=== PATIENT | female | born 1940 | race Caucasian/White ===

== ENCOUNTER 2019-12-30 11:51 | Inpatient (IN) | payer MEDICARE, OTHER, SELFPAY ==
[2019-12-30] VITALS (9 sets, daily range): BP systolic 118–153; BP diastolic 52–93; PULSE 55–80; RESP 15–18; TEMP 36.4–36.8; O2SAT 95–100; BMI 26.2; BMI 25.1; BMI 25.2
--- NOTE | 2019-12-30 12:24 | RAD_ITS ---
STUDY: X-RAY CHEST REASON FOR EXAM: Female, 79 years old. CHEST TIGHTNESS TECHNIQUE: Single AP portable view of the chest. COMPARISON: None. FINDINGS: EKG leads project over the chest. The lungs are clear and expanded. There is no demonstrated pleural abnormality. Normal size heart. Normal mediastinum and laura. Normal visualized pulmonary arteries. There is atherosclerotic tortuosity of the aortic arch and descending thoracic aorta. Normal visualized thoracic spine. Normal visualized ribs, clavicles, and shoulders. There is no demonstrated abnormality of the visualized soft tissue structures of the upper abdomen. RAD/Chest 1 View (Portable) IMPRESSION: Nonacute portable x-ray examination of the chest. Electronically Signed: Joselito Salinas MD (Brooks) at 14:05 EST , Service support ,
--- NOTE | 2019-12-30 12:24 | EKG12_ITS ---
Test Reason : Blood Pressure : / mmHG Vent. Rate : 058 BPM Atrial Rate : 058 BPM P-R Int : 136 ms QRS Dur : 082 ms QT Int : 418 ms P-R-T Axes : 050 033 049 degrees QTc Int : 410 ms Sinus bradycardia with sinus arrhythmia Otherwise normal ECG No previous ECGs available Confirmed by LIA CRAMER, WHITNEY ([id number]), editor & co founder ALLEN WEN ([id number]) on 01/01/2020 9:34:29 AM Referred By: XAVI Confirmed By:WHITNEY FITZGERALD MD
--- NOTE | 2019-12-30 12:24 | ED.VIS.GEN ---
History of Present Illness Chief Complaint: Chest Pain Informant: Patient Onset: Today Current Severity: Moderate Maximum Severity: Moderate Narrative: Present secondary to chest pain. She states that she went to brush her teeth this morning and got chest pressure that radiated toward both shoulders and into her right jaw. She states she had similar pain in March when she was seen at [facility] and transferred to [facility] in [place]. She had a heart cath at that time that showed mild blockages in her small vessels and an arrhythmia. This is per her report, I do not records to verify this. Patient states since that time she is had occasional pain that would resolve with nitro. She took 2 nitro today without significant improvement. She did take 1 baby aspirin this morning. - Past Medical History (1) Hypertension Status: Chronic (2) High cholesterol Status: Chronic (3) Diabetes Status: Chronic (4) Hypothyroid Status: Chronic Past Medical History - Allergies and Home Meds Allergies/Adverse Reactions: Allergies Penicillins [PCN] Allergy (Verified 12/30/19 12:02) Rash Primary Care Physician: [facility] Doctor,Out of [NON-STAFF] - Prior records reviewed: Yes Smoking Status: Unknown if ever smoked Review of Systems General: Denies: Chills, Fever Eyes: Denies: Visual changes - bilaterally ENT: Denies: Bilateral ear pain Cardiovascular: Reports: Chest pain Respiratory: Denies: Dyspnea, Cough Gastrointestinal: Denies: Abdominal pain Musculoskeletal: Denies: Extremity Pain Skin: Denies: Rash Neurological: Denies: Headache Hematologic: Denies: Easy bruising, Easy bleeding Allergy: Denies: Uticaria Physical Exam Vital Signs/Narrative: Vital Signs Temp Pulse Resp BP Pulse Ox 12/30/19 11:51 98.2 F 80 18 153/93 H 96 Inital Vital Signs reviewed: Yes General: Well nourished, Well developed Head: Normocephalic ENT: Moist mucous membranes Neck: Supple Cardiovascular: Regular rate, Regular rhythm Respiratory: No distress, CTA bilaterally, Chest nontender Abdomen: Soft, Nontender Extremities: Nontender Skin: Normal color Neurological: Alert, Oriented x3 Psychological: Normal affect Diagnostic/Tx/Re-eval Chest X-Ray - ED: 1 View, Read by ED Physician, Normal, Heart, Lungs, Mediastinum 12/30/19 12:24 Chest 1 View (Portable) [RAD] Stat Laboratory Results 12/30/19 12/30/19 12:30 12:30 WBC 8.7 RBC 4.24 Hgb 12.5 Hct 40.0 MCV 94.3 MCH 29.5 MCHC 31.3 L RDW Std Deviation 46.0 H RDW Coeff of Jerry 13.5 Plt Count 137 L MPV 13.9 H Immature Gran % (Auto) 0.300 Neut % (Auto) 70.8 H Lymph % (Auto) 20.6 [place] % (Auto) 4.7 Eos % (Auto) 2.8 Baso % (Auto) 0.8 Absolute Neuts (auto) 6.2 Absolute Lymphs (auto) 1.79 Nucleated RBC % 0 Sodium 143 Potassium 4.3 Chloride 111 H Carbon Dioxide 25.0 Anion Gap 7 BUN 21 H Creatinine 1.44 H Estim Creat Clear Calc 26.63 Est GFR (MDRD) Af Amer 45 L Est GFR (MDRD) Non-Af 37 L BUN/Creatinine Ratio 14.6 Glucose 252 H Calcium 8.8 Troponin I < 0.015 - EKG Initial EKG Interpretation: Sinus Rhythm - Sinus at 72 with no acute ischemia. - Medical Decision Making Patient was given 3 additional baby aspirin as she initially had taken 1 at home. She had no improvement with nitro today. I was able to review her notes from March when she was at [facility], but not from [facility]. At [place] her troponin increased from 0.02-0.5. At that time she was diagnosed with an NSTEMI and she was placed on a heparin drip and transferred for further evaluation. Because the patient does have risk factors and her symptoms today are very much like March when she had an NSTEMI I will recommend hospitalization for cycling of cardiac enzymes and further evaluation. Hospitalist is on page. ED Disposition - Plan for ED Patient: Disposition: Home or Assisted Living Diagnosis: Chest pain Referrals: [facility] Doctor,Out of [NON-STAFF] -
[2019-12-30] MEDS: Aspirin 81 MG TAB.CHEW 243 MG PO (12:34)
[2019-12-30 12:43] LABS: Absolute Lymphocyte Count 1.79 X10^3/uL (0.83-4.51); Absolute Neutrophil Count 6.2 X10^3/uL (2.0-7.7); Basophil# 0.07 X10^3/uL; Basophil% 0.8 % (0-1); Eosinophil# 0.24 X10^3/uL; Eosinophils% 2.8 % (0-5); Hemoglobin 12.5 g/dL (12.0-15.0); Lymphocyte # 1.79 X10^3/ul (4.0); Lymphocyte % 20.6 % (19-41); Mean Corp Hgb Conc 31.3 g/dL (32-36); Mean Corpuscular Hgb 29.5 pg (27.0-32.0); Mean Corpuscular Volume 94.3 fL (81-99); Mean Platelet Vol. 13.9 fl (6.2-12.0); Monocyte# 0.41 X10^3/uL; Monocyte% 4.7 % (0-10); NRBC Flagged by Analyzer 0 % (0-5); Neutrophil # 6.17 X10^3/uL (2.7-7.7); Neutrophil % 70.8 % (47-70); Platelet Count 137 K/mm3 (150-450); RBC Distribution Width CV 13.5 % (11.6-14.6); Red Blood Count 4.24 M/mm3 (4.2-5.4); White Blood Count 8.7 K/mm3 (4.4-11.0)
[2019-12-30 12:58] LABS: Anion Gap 7 (5-15); BUN 21 mg/dL (7-18); BUN/Creat Ratio 14.6 RATIO (10-20); Calcium,Total 8.8 mg/dL (8.5-10.1); Chloride 111 mmol/L (98-107); Creatinine, Serum 1.44 mg/dL (0.55-1.02); EST Glomerular Filtration Rate 37 mL/min (>60); Est Glom Filt Rate - Afr Amer 45 mL/min (>60); Estimated Creatinine Clearance 26.63 ml/min; Glucose 252 mg/dL (74-106); Potassium 4.3 mmol/L (3.5-5.1); Sodium Level 143 mmol/L (136-145)
--- NOTE | 2019-12-30 14:19 | ED.RN ---
Message left for Jonathan with PCU room number and nurse's station number.
--- NOTE | 2019-12-30 15:24 | EKG12_ITS ---
Test Reason : CP Blood Pressure : / mmHG Vent. Rate : 072 BPM Atrial Rate : 072 BPM P-R Int : 158 ms QRS Dur : 076 ms QT Int : 374 ms P-R-T Axes : 053 026 054 degrees QTc Int : 409 ms Normal sinus rhythm with sinus arrhythmia Normal ECG Confirmed by LIA CRAMER, WHITNEY ([id number]), tape editor MILADY TRINH ([id number]) on 01/02/2020 10:33:25 AM Referred By: DAGO/MIGUEL Confirmed By:WHITNEY FITZGERALD MD
--- NOTE | 2019-12-30 15:40 | HP.PCM_ITS ---
Problem List (1) Hypertension Status: Chronic (2) High cholesterol Status: Chronic (3) Diabetes Status: Chronic (4) Hypothyroid Status: Chronic (5) Chest pain Status: Acute History of Present Illness Date of Admission: 12/30/19 Chief Complaint: Chest pain. The patient is a 79 year old F who presents emergency room due to chest pain. Patient reports around 10 AM this morning she developed a sharp pain in the center of her chest which radiated down both arms and up her neck. She denies shortness of breath, nausea, diaphoresis, lightheadedness or other associated symptoms. Patient took a nitro at home however it did not improve her symptoms. She reports her pain continued and is just now starting to ease up. Patient states she had a mild heart attack in March of this year she was seen at [facility]. She reports she underwent heart cath at that time which showed nonobstructive coronary arteries. Upon exam, her chest pain is reproducible with palpation in her midsternal area. Initial troponin negative. She has a past medical history of chronic kidney disease stage III, type 2 diabetes mellitus, hypertension, hyperlipidemia. Past Medical History Past Medical History (Chronic Problems): Chronic Problems (Last Reviewed 12/30/19 @ 15:01 by Irene Quiroz RN) Hypertension (Chronic) High cholesterol (Chronic) Diabetes (Chronic) Hypothyroid (Chronic) Medical History: Medical History (Last Reviewed 12/30/19 @ 15:01 by Irene Quiroz RN) HTN (hypertension) I10 Allergies Penicillins [PCN] Allergy (Verified 12/30/19 12:02) Rash Home Medications: Ambulatory Orders Medication Instructions Recorded Aspirin [Aspirin, Baby] 81 mg PO DAILY@0800 12/30/19 Atorvastatin Calcium [Lipitor] 80 mg PO QHS 12/30/19 Cholecalciferol (Vitamin D3) 2,000 unit PO DAILY 12/30/19 [Vitamin D3] Dulaglutide [Trulicity] 1.5 mg SQ QWEEK 12/30/19 Glipizide 5 mg PO BID 12/30/19 Isosorbide Mononitrate [Imdur] 60 mg PO DAILY 12/30/19 Lansoprazole [Prevacid] 30 mg PO DAILY 12/30/19 Levothyroxine [Synthroid] 50 mcg PO DAILY 12/30/19 Losartan Potassium [Cozaar] 25 mg PO DAILY 12/30/19 Metoprolol Tartrate [Lopressor 25 mg PO BID 12/30/19 (Beta Dora)] Nitroglycerin [Nitrostat] 0.4 mg SL Q5M PRN 12/30/19 [place]-3 Fatty Acids/Fish Oil [Fish 1 ea PO DAILY 12/30/19 Oil 1,000 mg Capsule] Raloxifene HCl [Evista] 60 mg PO DAILY 12/30/19 Trajenta 5 mg PO DAILY 12/30/19 Surgical History: cholecystectomy Psychiatric History: 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 Lives: Spouse/ Significant Other Smoking Status: Never smoker Alcohol: None Drugs: None - *Family History Maternal History Items: Stroke Paternal History Items: Heart Disease Review of Systems Constitutional: Denies: Chills, Fever, Weight Change HEENT: Denies: Head Aches, Sinus Congestion, Sinus Drainage Cardiovascular: Reports: Chest Pain Respiratory: Denies: Cough, Shortness of breath at rest, Sputum production Gastrointestinal: Denies: Abdominal Pain, Nausea, Vomiting Genitourinary: Denies: Dysuria Musculoskeletal: Denies: Joint Pain, Joint Tenderness Skin: Denies: Rash, Wounds Neurological: Denies: Numbness, Tingling, Focal weakness Psychiatric: Denies: Anxiety, Depression, Homicidal Ideations, Suicidal Ideations Hematologic/ Lymphatic: Denies: Easy Bruising, Easy Bleeding VTE Information - Inpt Only VTE Present on Admission: No VTE Mechan Device Prophylaxis: None VTE Pharm Prophylaxis ordered?: No Reason prophylaxis not ordered:: Treatment Not Indicated Patient Problems: Active and Suspected Problems (Last Reviewed 12/30/19 @ 15:01 by Irene Quiroz RN) Chest pain (Acute) - Physical Exam Vitals/I&O's: Vital Signs Temp Pulse Resp BP Pulse Ox 98.3 F 58 L 16 144/64 H 97 12/30/19 14:17 12/30/19 14:17 12/30/19 14:17 12/30/19 14:17 12/30/19 14:17 Oxygen Delivery Method Room Air Weight: 150 lb 9.211 oz Body Mass Index (BMI) 26.2 General: Alert, Oriented x3, Cooperative HEENT: Atraumatic, PERRLA, EOMI, Normocephalic Neck: Supple, No JVD, Negative Carotid Bruits Lungs: Clear to auscultation, Normal air movement Cardiovascular: Regular rate, No murmurs Abdomen: Bowel Sounds Present, Soft, Non Tender, Non-Distended Extremities: No clubbing, No cyanosis, No edema Skin: No rashes, No breakdown Musculoskeletal: No Tenderness to Palpation of Joints or Extremities, - - Midsternal chest pain with palpation Neurological: Cranial nerves II-XII grossly intact, Neuro grossly intact Psych/Mental Status: Normal Affect, Appropriate Laboratory Results 12/30/19 12:30: WBC 8.7, RBC 4.24, Hgb 12.5, Hct 40.0, MCV 94.3, MCH 29.5, MCHC 31.3 L, RDW Std Deviation 46.0 H, RDW Coeff of Jerry 13.5, Plt Count 137 L, MPV 13.9 H, Immature Gran % (Auto) 0.300, Neut % (Auto) 70.8 H, Lymph % (Auto) 20.6, [place] % (Auto) 4.7, Eos % (Auto) 2.8, Baso % (Auto) 0.8, Absolute Neuts (auto) 6.2, Absolute Lymphs (auto) 1.79, Nucleated RBC % 0 12/30/19 12:30: Sodium 143, Potassium 4.3, Chloride 111 H, Carbon Dioxide 25.0, Anion Gap 7, BUN 21 H, Creatinine 1.44 H, Estim Creat Clear Calc 26.63, Est GFR (MDRD) Af Amer 45 L, Est GFR (MDRD) Non-Af 37 L, BUN/Creatinine Ratio 14.6, Glucose 252 H, Calcium 8.8, Troponin I < 0.015 Assessment/Plan All Active Problems (Last Reviewed 12/30/19 @ 15:01 by Irene Quiroz, KEI) Chest pain (Acute) 1. Atypical chest pain-initial troponin negative. EKG without ST-T changes. Patient had NSTEMI March 2019 where she was evaluated at [facility]. Per records, cath 03/22/2019 demonstrated EF 55%, LAD proximal lesion 40% stenosis, right coronary artery proximal vessel lesion with 30% stenosis, no evidence of obstructive CAD. Continue aspirin, statin, isosorbide, losartan, metoprolol. If repeat troponins negative, will plan for discharge home with continued medical management. As noted previously, chest pain is reproducible. Suspect musculoskeletal. 2. Chronic kidney disease stage III-stable. 3. Type 2 diabetes mellitus-On Tradjenta, Trulicity, glipizide. 4. Hypertension-stable, continue isosorbide, losartan, metoprolol. 5. Hyperlipidemia-continue statin. 6. Hypothyroidism-continue Synthroid regimen. 7. GERD-continue Prevacid. DVT prophylaxis-low risk, ambulatory This patient was seen by ELIESER Chisholm under the supervision of Dr. Baker.
[2019-12-30] MEDS: 0.9% Normal Saline 1,000 ML 100 ML IV (17:03)
[2019-12-30 18:36] LABS: Bedside Glucose 126 mg/dL (70-110)
--- NOTE | 2019-12-30 18:53 | NURSING ---
Lab called with critical value of 0.711 Dr. Baker awaiting orders
[2019-12-30] MEDS: Heparin Injection (Vial) 5,000 UNIT/ML VIAL 5000 UNIT SC (21:03)
[2019-12-30] MEDS: Metoprolol Tartrate 25 MG Tablet PO (21:04)
[2019-12-30] MEDS: Atorvastatin Calcium 80 MG Tablet PO (21:04)
[2019-12-30 22:06] LABS: Bedside Glucose 123 mg/dL (70-110)
[2019-12-31] VITALS (11 sets, daily range): BP systolic 127–147; BP diastolic 55–78; PULSE 53–90; RESP 15–18; TEMP 36.4–36.7; O2SAT 96–98
[2019-12-31] MEDS: 0.9% Normal Saline 1,000 ML 100 ML IV ×3 (02:12→22:13)
[2019-12-31] MEDS: Levothyroxine 50 MCG Tablet PO (06:14)
[2019-12-31] MEDS: Ondansetron 4 MG/2 ML Vial IV (06:59)
[2019-12-31 07:00] LABS: Bedside Glucose 109 mg/dL (70-110)
--- NOTE | 2019-12-31 08:05 | CON.PCM_ITS ---
Reason for Consult Date of Consultation: 12/31/19 Reason for Consultation: Chest pain History of Present Illness: The patient is a 79 year old F who presented to the emergency room last night complaining of chest discomfort. She says approximately 10 AM she started experiencing sharp chest pain radiating down to both arms and up her neck. She denied any shortness of breath nausea diaphoresis lightheadedness. And nitroglycerin did not improve her symptoms. She had similar symptoms approximately 10 months ago where she went to [facility] and subsequently was [facility]. She underwent a cardiac catheterization which demonstrated 30 to 40% stenosis noted in the LAD and circumflex artery. Her ejection fraction was preserved and was felt that this was secondary to nonobstructive coronary disease and microvascular disease and medical therapy was recommended. She had done well in the interim until this episode. Her other medical conditions included diabetes mellitus, hypertension, hyperlipidemia, and mild renal dysfunction. She has been compliant with her medications. This morning she is noted to be pain-free. She however has noted the sniffles and what she thinks is a cough but no fever. [] Past Medical History Allergies/Adverse Reactions: Allergies Penicillins [PCN] Allergy (Verified 12/30/19 12:02) Rash Home Medications: Ambulatory Orders Medication Instructions Recorded Aspirin [Aspirin, Baby] 81 mg PO DAILY@0800 12/30/19 Atorvastatin Calcium [Lipitor] 80 mg PO QHS 12/30/19 Cholecalciferol (Vitamin D3) 2,000 unit PO DAILY 12/30/19 [Vitamin D3] Dulaglutide [Trulicity] 1.5 mg SQ QWEEK 12/30/19 Glipizide 5 mg PO BID 12/30/19 Isosorbide Mononitrate [Imdur] 60 mg PO DAILY 12/30/19 Lansoprazole [Prevacid] 30 mg PO DAILY 12/30/19 Levothyroxine [Synthroid] 50 mcg PO DAILY 12/30/19 Losartan Potassium [Cozaar] 25 mg PO DAILY 12/30/19 Metoprolol Tartrate [Lopressor 25 mg PO BID 12/30/19 (Beta Dora)] Nitroglycerin [Nitrostat] 0.4 mg SL Q5M PRN 12/30/19 [place]-3 Fatty Acids/Fish Oil [Fish 1 ea PO DAILY 12/30/19 Oil 1,000 mg Capsule] Raloxifene HCl [Evista] 60 mg PO DAILY 12/30/19 Trajenta 5 mg PO DAILY 12/30/19 Past Medical History (Chronic Problems): Chronic Problems (Last Reviewed 12/30/19 @ 15:01 by Irene Quiroz RN) Hypertension (Chronic) High cholesterol (Chronic) Diabetes (Chronic) Hypothyroid (Chronic) Surgical History: cholecystectomy Psychiatric History: 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 Denies: Shortness of Breath, Orthopnea, PND, Peripheral Edema, Palpitations, Lightheadedness, Dizziness, Near Syncope, Syncope Respiratory: Denies: Cough, Sputum Production, Hemoptysis Gastrointestinal: Denies: Hematemesis, Hematochezia, Melena Genitourinary: Denies: Dysuria, Hematuria Skin: Denies: Rash Psychiatric: Reports: Anxiety Endocrine: Reports: Heat Intolerance Objective: Vital Signs Temp Pulse Resp BP Pulse Ox 97.5 F L 65 15 141/72 H 98 12/31/19 04:00 12/31/19 07:00 12/31/19 06:00 12/31/19 04:00 12/31/19 04:00 Oxygen Delivery Method Room Air Weight: 142 lb Body Mass Index (BMI) 25.1 Intake and Output for Last 24 Hours 12/29/19 12/30/19 12/31/19 23:59 23:59 23:59 Intake Total 915 / 915 Output Total Balance - 915 / 915 General: Awake, Alert, Oriented x 3 HEENT: PERRL, EOMI, Sclera Non Icteric Neck: Supple, Good ROM, No Lymph Node Enlargement Lungs: Clear to auscultation Cardiovascular: Regular Rhythm, Normal S1, Normal S2, No Murmurs, No Rubs, No Gallops 12/30/19 12:30: WBC 8.7, RBC 4.24, Hgb 12.5, Hct 40.0, MCV 94.3, MCH 29.5, MCHC 31.3 L, Plt Count 137 L, MPV 13.9 H, Immature Gran % (Auto) 0.300, Neut % (Auto) 70.8 H, Lymph % (Auto) 20.6, [place] % (Auto) 4.7, Eos % (Auto) 2.8, Baso % (Auto) 0.8, Absolute Neuts (auto) 6.2, Nucleated RBC % 0 12/30/19 12:30: Sodium 143, Potassium 4.3, Chloride 111 H, Carbon Dioxide 25.0, Anion Gap 7, BUN 21 H, Creatinine 1.44 H, Est GFR (MDRD) Af Amer 45 L, Est GFR (MDRD) Non-Af 37 L, BUN/Creatinine Ratio 14.6, Glucose 252 H, Calcium 8.8, Troponin I < 0.015 12/30/19 15:44: Troponin I 0.210 H 12/30/19 18:13: Troponin I 0.711 H* Rhythm: EKG: Normal sinus rhythm with no acute changes ECHO: Stress Test: Cardiac Cath: PCI: CT Surgery: Holter monitor: EPS: PPM: CXR: Chest CT Scan: Assessment/Plan 1. Chest pain. * Patient presents with chest discomfort and has a non-ST elevation myocardial infarction. I suspect the above is likely secondary to plaque rupture. * 10 months ago the patient underwent a cardiac catheterization which did not demonstrate any obstructive coronary disease. I would recommend that she undergo a repeat cardiac catheterization but this will be performed after an appropriately negative Covid test due to the symptoms that she is complaining of at this particular time. The above has been discussed with the nursing staff to have discussed it with the hospitalist who are in agreement. * Will start clopidogrel later today 2. Hypertension * Patient appears to have well-controlled hypertension no changes were made with respect to this. * Continue current medications. * 3. Hyperlipidemia * Continue aggressive statin therapy. * * Thank you for allowing me to participate in the care of your patient. Please don't hesitate to call if any issues arise.
[2019-12-31] MEDS: glipiZIDE 5 MG Tablet PO ×2 (10:04→16:44)
[2019-12-31] MEDS: Losartan Potassium 25 MG Tablet PO (10:04)
[2019-12-31] MEDS: Metoprolol Tartrate 25 MG Tablet PO ×2 (10:04→22:07)
[2019-12-31] MEDS: Aspirin 81 MG TAB.CHEW PO (10:04)
[2019-12-31] MEDS: Pantoprazole Sodium 40 MG Tablet PO (10:05)
[2019-12-31] MEDS: Isosorbide Mononitrate 60 MG Tablet PO ×2 (10:05→22:07)
[2019-12-31] MEDS: Heparin Injection (Vial) 5,000 UNIT/ML VIAL 5000 UNIT SC ×2 (12:41→22:06)
[2019-12-31 12:50] LABS: Bedside Glucose 101 mg/dL (70-110)
--- NOTE | 2019-12-31 13:06 | PCM.PROGNOTE ---
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 Denies further chest pain. Mild rhinorrhea. Denies cough, fever, chills. - Physical Exam Vitals/I&O's: Vital Signs Temp Pulse Resp BP Pulse Ox 98.0 F 64 16 147/78 H 96 12/31/19 10:00 12/31/19 10:04 12/31/19 10:00 12/31/19 10:04 12/31/19 10:00 Oxygen Delivery Method Room Air Weight: 142 lb Body Mass Index (BMI) 25.1 Intake and Output for Last 24 Hours 12/29/19 12/30/19 12/31/19 23:59 23:59 23:59 Intake Total 2014 Output Total Balance -2014 General: Alert, Oriented x3, Cooperative HEENT: Atraumatic, PERRLA, EOMI, Normocephalic Neck: Supple, No JVD, Negative Carotid Bruits Lungs: Clear to auscultation, Normal air movement Cardiovascular: Regular rate, No murmurs Abdomen: Bowel Sounds Present, Soft, Non Tender Extremities: No clubbing, No cyanosis, No edema, Capillary Refill Less than 3 Seconds Skin: No rashes, No breakdown Musculoskeletal: No Tenderness to Palpation of Joints or Extremities Neurological: Cranial nerves II-XII grossly intact, Neuro grossly intact Psych/Mental Status: Normal Affect, Appropriate Laboratory Results 12/30/19 15:44: Troponin I 0.210 H 12/30/19 18:13: Troponin I 0.711 H* 12/30/19 18:30: POC Glucose 126 H 12/30/19 22:01: POC Glucose 123 H 12/31/19 06:53: POC Glucose 109 12/31/19 08:15: COVID-19 ([facility]) Not Detected 12/31/19 12:40: POC Glucose 101 Current Medications Aspirin (Aspirin 81 Mg Tab.Chew) 81 mg PO DAILY@0800 [facility] Last Admin: 12/31/19 10:04 Dose: 81 mg Documented by: Atorvastatin Calcium (Atorvastatin Calcium 80 Mg Tablet) 80 mg PO QHS [facility] Last Admin: 12/30/19 21:04 Dose: 80 mg Documented by: Glipizide (Glipizide 5 Mg Tablet) 5 mg PO BIDCM [facility] Last Admin: 12/31/19 10:04 Dose: 5 mg Documented by: Heparin Sodium (Porcine) (Heparin Injection (Vial) 5,000 Unit/Ml Vial) 5,000 unit SC Q12 [facility] Last Admin: 12/31/19 12:41 Dose: 5,000 unit Documented by: Sodium Chloride () 1,000 mls @ 100 mls/hr IV .Q10H [facility] Last Admin: 12/31/19 12:42 Dose: 100 mls/hr Documented by: Sodium Chloride () 1,000 mls @ 0 mls/hr IV .Q0M [facility] Insulin Human Lispro (Insulin Lispro 100 Unit/Ml Insuln.Pen) 0 unit SC ACHS [facility]; Protocol Last Admin: 12/31/19 12:42 Dose: Not Given Documented by: Isosorbide Mononitrate (Isosorbide Mononitrate 60 Mg Tablet) 60 mg PO BID [facility] Last Admin: 12/31/19 10:05 Dose: 60 mg Documented by: Levothyroxine Sodium (Levothyroxine 50 Mcg Tablet) 50 mcg PO DAILY@0600 [facility] Last Admin: 12/31/19 06:14 Dose: 50 mcg Documented by: Losartan Potassium (Losartan Potassium 25 Mg Tablet) 25 mg PO DAILY [facility] Last Admin: 12/31/19 10:04 Dose: 25 mg Documented by: Metoprolol Tartrate (Metoprolol Tartrate 25 Mg Tablet) 25 mg PO BID [facility] Last Admin: 12/31/19 10:04 Dose: 25 mg Documented by: Nitroglycerin (Nitroglycerin (Inpatient Use) 0.4 Mg Tab.Subl) 0.4 mg SUBLINGUAL Q5M PRN PRN Reason: CARDIAC/CHEST PAIN Ondansetron HCl (Ondansetron 4 Mg/2 Ml Vial) 4 mg IV Q8H PRN PRN PRN Reason: NAUSEA/VOMITING Last Admin: 12/31/19 06:59 Dose: 4 mg Documented by: Pantoprazole Sodium (Pantoprazole Sodium 40 Mg Tablet) 40 mg PO DAILY [facility] Last Admin: 12/31/19 10:05 Dose: 40 mg Documented by: Sodium Chloride (0.9% Saline Lock 10 Ml Syringe) 10 - 40 ml IV UD PRN PRN Reason: SALINE FLUSH Temazepam (Temazepam 15 Mg Capsule) 15 mg PO QHS PRN PRN PRN Reason: INSOMNIA Medical Necessity - Tobacco Use Smoking Status: Never smoker Tobacco Use: Non-smoker Assessment/Plan All Active Problems (Last Reviewed 12/30/19 @ 15:01 by Irene Quiroz, KEI) Chest pain (Acute) 1. Chest pain/NSTEMI-EKG without ST-T changes. Patient had NSTEMI March 2019 where she [facility]. Per records, cath 03/22/2019 demonstrated EF 55%, LAD proximal lesion 40% stenosis, right coronary artery proximal vessel lesion with 30% stenosis, no evidence of obstructive CAD. Continue aspirin, statin, isosorbide, losartan, metoprolol. Plan to start Plavix per cardiology. Heart cath in a.m. 2. Chronic kidney disease stage III-stable. Trend BMP. 3. Type 2 diabetes mellitus-On Tradjenta, Trulicity, glipizide. Accu-Cheks with sliding scale insulin. 4. Hypertension-stable, continue isosorbide, losartan, metoprolol. 5. Hyperlipidemia-continue statin. 6. Hypothyroidism-continue Synthroid regimen. 7. GERD-continue Prevacid. DVT prophylaxis-Heparin subcu This patient was seen by ELIESER Chisholm under the supervision of Dr. Malloy. <Cassi Malloy - Last Filed: 12/31/19 18:29> - Physical Exam Vitals/I&O's: Vital Signs Temp Pulse Resp BP Pulse Ox 98.0 F 53 L 18 127/66 H 97 12/31/19 16:00 12/31/19 16:00 12/31/19 16:00 12/31/19 16:00 12/31/19 16:00 Oxygen Delivery Method Room Air Weight: 64.41 kg Body Mass Index (BMI) 25.1 Intake and Output for Last 24 Hours 12/29/19 12/30/19 12/31/19 23:59 23:59 23:59 Intake Total 2014 Output Total Balance - / -1 2014 Laboratory Results 12/30/19 18:13: Troponin I 0.711 H* 12/30/19 18:30: POC Glucose 126 H 12/30/19 22:01: POC Glucose 123 H 12/31/19 06:53: POC Glucose 109 12/31/19 08:15: COVID-19 ([facility]) Not Detected 12/31/19 12:40: POC Glucose 101 12/31/19 16:43: POC Glucose 205 H Current Medications Aspirin (Aspirin 81 Mg Tab.Chew) 81 mg PO DAILY@0800 [facility] Last Admin: 12/31/19 10:04 Dose: 81 mg Documented by: Atorvastatin Calcium (Atorvastatin Calcium 80 Mg Tablet) 80 mg PO QHS [facility] Last Admin: 12/30/19 21:04 Dose: 80 mg Documented by: Glipizide (Glipizide 5 Mg Tablet) 5 mg PO BIDCM [facility] Last Admin: 12/31/19 16:44 Dose: 5 mg Documented by: Heparin Sodium (Porcine) (Heparin Injection (Vial) 5,000 Unit/Ml Vial) 5,000 unit SC Q12 [facility] Last Admin: 12/31/19 12:41 Dose: 5,000 unit Documented by: Sodium Chloride () 1,000 mls @ 100 mls/hr IV .Q10H [facility] Last Admin: 12/31/19 12:42 Dose: 100 mls/hr Documented by: Sodium Chloride () 1,000 mls @ 0 mls/hr IV .Q0M [facility] Insulin Human Lispro (Insulin Lispro 100 Unit/Ml Insuln.Pen) 0 unit SC ACHS [facility]; Protocol Last Admin: 12/31/19 16:44 Dose: 4 units Documented by: Isosorbide Mononitrate (Isosorbide Mononitrate 60 Mg Tablet) 60 mg PO BID [facility] Last Admin: 12/31/19 10:05 Dose: 60 mg Documented by: Levothyroxine Sodium (Levothyroxine 50 Mcg Tablet) 50 mcg PO DAILY@0600 [facility] Last Admin: 12/31/19 06:14 Dose: 50 mcg Documented by: Losartan Potassium (Losartan Potassium 25 Mg Tablet) 25 mg PO DAILY [facility] Last Admin: 12/31/19 10:04 Dose: 25 mg Documented by: Metoprolol Tartrate (Metoprolol Tartrate 25 Mg Tablet) 25 mg PO BID [facility] Last Admin: 12/31/19 10:04 Dose: 25 mg Documented by: Nitroglycerin (Nitroglycerin (Inpatient Use) 0.4 Mg Tab.Subl) 0.4 mg SUBLINGUAL Q5M PRN PRN Reason: CARDIAC/CHEST PAIN Ondansetron HCl (Ondansetron 4 Mg/2 Ml Vial) 4 mg IV Q8H PRN PRN PRN Reason: NAUSEA/VOMITING Last Admin: 12/31/19 06:59 Dose: 4 mg Documented by: Pantoprazole Sodium (Pantoprazole Sodium 40 Mg Tablet) 40 mg PO DAILY [facility] Last Admin: 12/31/19 10:05 Dose: 40 mg Documented by: Sodium Chloride (0.9% Saline Lock 10 Ml Syringe) 10 - 40 ml IV UD PRN PRN Reason: SALINE FLUSH Temazepam (Temazepam 15 Mg Capsule) 15 mg PO QHS PRN PRN PRN Reason: INSOMNIA Assessment/Plan This patient was seen in conjunction with Kalyn Pretty NP. I have independently interviewed and examined the patient and reviewed pertinent historical, laboratory, and other data. Please refer to her note for patient's presentation, findings, and recommendations. Patient was seen and examined. No acute events overnight. She will be going for cardiac cath tomorrow. Vitals were reviewed -stable Physical Exam: Gen: Comfortable, not pale, not jaundiced, alert oriented x3 CVS:HS I +II, regular, no murmurs RESP: CTA GI: BS present and normal, nontender, no palpable organs EXT:No edema Labs reviewed: ASSESSMENT: 1. Acute NSTEMI 2. CKD stage III 3. Type 2 DM 4. Hypertension 5. Hyperlipidemia 6. Hypothyroidism 7. GERD Meds reviewed Plan: Continue per cardiology recommendations Continue blood sugars Inpatient E&M: 48138 Subs Hosp L2
[2019-12-31] MEDS: Insulin Lispro 100 UNIT/ML INSULN.PEN SC (16:44)
[2019-12-31 16:50] LABS: Bedside Glucose 205 mg/dL (70-110)
[2019-12-31] MEDS: Clopidogrel Bisulfate 300 MG Tablet PO (19:50)
[2019-12-31] MEDS: Atorvastatin Calcium 80 MG Tablet PO (22:07)
[2019-12-31 23:35] LABS: Bedside Glucose 96 mg/dL (70-110)
[2020-01-01] VITALS (16 sets, daily range): BP systolic 111–142; BP diastolic 42–75; PULSE 52–84; RESP 16–18; TEMP 36.3–36.8; O2SAT 92–100
[2020-01-01 04:06] LABS: Bedside Glucose 59 mg/dL (70-110)
[2020-01-01 04:06] LABS: Bedside Glucose 81 mg/dL (70-110)
--- NOTE | 2020-01-01 05:55 | EKG12_ITS ---
Test Reason : AM EKG Blood Pressure : / mmHG Vent. Rate : 074 BPM Atrial Rate : 074 BPM P-R Int : 152 ms QRS Dur : 080 ms QT Int : 394 ms P-R-T Axes : 043 026 069 degrees QTc Int : 437 ms Sinus rhythm with Blocked Premature atrial complexes Otherwise normal ECG When compared with ECG of 30-DEC-2019 15:12, MANUAL COMPARISON REQUIRED, DATA IS UNCONFIRMED Confirmed by LIA CRAMER, WHITNEY ([id number]), social media editor MILADY TRINH ([id number]) on 01/02/2020 10:53:13 AM Referred By: EDU Confirmed By:WHITNEY FITZGERALD MD
[2020-01-01] MEDS: Levothyroxine 50 MCG Tablet PO (06:48)
[2020-01-01 06:50] LABS: Bedside Glucose 156 mg/dL (70-110)
[2020-01-01] MEDS: Metoprolol Tartrate 25 MG Tablet PO (06:52)
[2020-01-01] MEDS: Isosorbide Mononitrate 60 MG Tablet PO (06:52)
[2020-01-01] MEDS: Losartan Potassium 25 MG Tablet PO (06:52)
[2020-01-01] MEDS: Aspirin 81 MG TAB.CHEW PO (06:52)
[2020-01-01] MEDS: 0.9% Normal Saline 1,000 ML 100 ML IV (07:01)
[2020-01-01] MEDS: Clopidogrel Bisulfate 75 MG Tablet PO (07:01)
--- NOTE | 2020-01-01 07:55 | NURSING ---
Report called to KEI Trevino in Education Reviewer. Pt okay to go at this time
[2020-01-01 08:05] LABS: Hematocrit 35.6 % (37-47); Hemoglobin 11.2 g/dL (12.0-15.0); Mean Corp Hgb Conc 31.5 g/dL (32-36); Mean Corpuscular Hgb 29.6 pg (27.0-32.0); Mean Corpuscular Volume 94.2 fL (81-99); Mean Platelet Vol. 14.4 fl (6.2-12.0); Platelet Count 124 K/mm3 (150-450); RBC Distribution Width CV 13.6 % (11.6-14.6); RBC Distribution Width SD 46.9 fl (35.1-43.9); Red Blood Count 3.78 M/mm3 (4.2-5.4); White Blood Count 8.1 K/mm3 (4.4-11.0)
[2020-01-01 08:22] LABS: Anion Gap 4 (5-15); BUN 13 mg/dL (7-18); BUN/Creat Ratio 10.7 RATIO (10-20); Calcium,Total 8.2 mg/dL (8.5-10.1); Chloride 116 mmol/L (98-107); Creatinine, Serum 1.22 mg/dL (0.55-1.02); EST Glomerular Filtration Rate 45 mL/min (>60); Est Glom Filt Rate - Afr Amer 55 mL/min (>60); Estimated Creatinine Clearance 31.44 ml/min; Glucose 153 mg/dL (74-106); Potassium 3.9 mmol/L (3.5-5.1); Sodium Level 143 mmol/L (136-145)
[2020-01-01 08:55] LABS: International Normalized Ratio 1.1; Prothrombin Time (Protime)PT. 14.2 SECONDS (11.7-14.9)
--- NOTE | 2020-01-01 09:16 | PN.CARD_ITS ---
Subjectve: Patient seen and evaluated. Appears to be stable. Objective: Vital Signs Temp Pulse Resp BP Pulse Ox 97.8 F 69 18 123/69 H 100 01/01/20 06:55 01/01/20 07:00 01/01/20 06:55 01/01/20 06:55 01/01/20 06:55 Oxygen Delivery Method Room Air Weight: 142 lb Body Mass Index (BMI) 25.1 Intake and Output for Last 24 Hours 12/30/19 12/31/19 01/01/20 23:59 23:59 23:59 Intake Total 3686.67 / 3686.67 1321.67 / 1321.67 Output Total Balance - / 3686.67 / 3686.67 1321.67 / 1321.67 General: Awake, Alert, Oriented x 3 HEENT: PERRL, EOMI, Sclera Non Icteric Neck: Supple, Good ROM, No Lymph Node Enlargement Lungs: Clear to auscultation Cardiovascular: Regular Rhythm, Normal S1, Normal S2, No Murmurs, No Rubs, No Gallops 01/01/20 07:20: WBC 8.1, RBC 3.78 L, Hgb 11.2 L, Hct 35.6 L, MCV 94.2, MCH 29.6, MCHC 31.5 L, Plt Count 124 L, MPV 14.4 H 01/01/20 07:20: PT 14.2, INR 1.1 01/01/20 07:20: Sodium 143, Potassium 3.9, Chloride 116 H, Carbon Dioxide 23.0, Anion Gap 4 L, BUN 13, Creatinine 1.22 H, Est GFR (MDRD) Af Amer 55 L, Est GFR (MDRD) Non-Af 45 L, BUN/Creatinine Ratio 10.7, Glucose 153 H, Calcium 8.2 L Rhythm: EKG: ECHO: Stress Test: Cardiac Cath: PCI: CT Surgery: Holter monitor: EPS: PPM: CXR: Chest CT Scan: Medical Necessity - Tobacco Use Smoking Status: Never smoker Tobacco Use: Non-smoker Assessment/Plan 1. Chest pain. * Patient presents with chest discomfort and has a non-ST elevation myocardial infarction. * Cardiac catheterization today demonstrated the following: Left main coronary artery noted to be normal. Left anterior descending artery with proximal 40 to 50% stenosis. Left circumflex artery with minimal disease. Dominant right coronary artery with proximal 60% eccentric stenosis. Based on the above angiographic findings I would still recommend aggressive medical therapy as we are doing with the beta-ovi, ARB, high intensity statin, and isosorbide. I would recommend discharging later today for an outpatient stress test in a week. If any of these lesions is noted to be significant and then we will bring the patient back for interval PCI. Above explained to the patient who understands and agrees to proceed. 2. Hypertension * Patient appears to have well-controlled hypertension no changes were made with respect to this. * Continue current medications. * 3. Hyperlipidemia * Continue aggressive statin therapy. * * Thank you for allowing me to participate in the care of your patient. Please don't hesitate to call if any issues arise.
--- NOTE | 2020-01-01 09:34 | CL.D_ITS ---
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 Stress testing to assess the significance of both lesions and then further recommendations made. DESCRIPTION OF PROCEDURE The patient arrived to the procedure lab. The risks and benefits of the procedure as well as a full d escription of our services here and current unavailability of surgical backup were fully explained to the patient and/or their significant other prior to the catheterization. The Timeout was completed, verifying the correct patient and procedure. The patient's procedural site was prepped and draped in the usual fashion. Local anesthetic was given subcutaneously to right radial region with Lidocaine 2% . Local anesthetic was given subcutaneously to right groin region with Lidocaine 2%. Using a modified Seldinger technique, arterial access was obtained via the right femoral artery, a 5Fr sheath was ins erted. Left Coronary Artery selective angiography was performed in multiple views using a 5 Fr. JL4 catheter. Right Coronary Artery selective angiography was then performed in multiple views using a 5 Fr. 3DRC (Osman) catheter.The arterial sheath was pulled and a TR Band was applied for hemostasis CORONARY ANGIOGRAPHY DOMINANCE: Right Dominant LEFT HEART ASSESSMENT Left Ventricular Ejection Fraction: by LV Gram 55 % Normal LV wall motion LEFT MAIN: Angiographically normal LEFT ANTERIOR DESCENDING ARTERY: PROX LAD: 40 % Stenosis DISTAL LAD: Small CIRCUMFLEX ARTERY: No significant disease noted RIGHT CORONARY ARTERY: No significant disease noted PROX RCA: Diffusely diseased up to 60 % MID RCA: No significant disease noted COMPLICATIONS No Complications PROCEDURE MEDICATIONS Fentanyl 50 mcg IV Versed 1 mg IV Versed 1 mg IV Oxygen: 2 L/min via nasal cannula SUMMARY OF HEMODYNAMIC DATA Time AIR REST ECG 08:07:17 AO 118/55 (78) SA 08:53:47 09:31:40 Signed By Edvin Mallory MD On 01/01/2020 09:33:56 Edvin Mallory MD
[2020-01-01] MEDS: 0.9% Normal Saline 1,000 ML 75 ML IV (10:00)
[2020-01-01] MEDS: Pantoprazole Sodium 40 MG Tablet PO (10:25)
[2020-01-01] MEDS: glipiZIDE 5 MG Tablet PO (10:25)
--- NOTE | 2020-01-01 11:06 | DCINST_ITS ---
- Discharge Diagnoses Current Active Problems: Current Active and Chronic Problems (Last Reviewed 12/30/19 @ 15:01 by Irene Quiroz RN) Hypertension (Chronic) High cholesterol (Chronic) Diabetes (Chronic) Hypothyroid (Chronic) Chest pain (Acute) You will use the following diet at home:: Cardiac Discharge Activity: Return to Normal Activity Call your doctor if you observe: Shortness of breath, Dizziness, Fainting spells, Chest pain Allergies/Adverse Reactions: Allergies Penicillins [PCN] Allergy (Verified 12/30/19 12:02) Rash Medications to take at Discharge Aspirin [Aspirin, Baby] 81 mg PO DAILY@0800 12/30/19 Atorvastatin Calcium [Lipitor] 80 mg PO QHS 12/30/19 Cholecalciferol (Vitamin D3) [Vitamin D3] 2,000 unit PO DAILY 12/30/19 Dulaglutide [Trulicity] 1.5 mg SQ QWEEK 12/30/19 Glipizide 5 mg PO BID 12/30/19 Lansoprazole [Prevacid] 30 mg PO DAILY 12/30/19 Levothyroxine [Synthroid] 50 mcg PO DAILY 12/30/19 Losartan Potassium [Cozaar] 25 mg PO DAILY 12/30/19 Metoprolol Tartrate [Lopressor (beta ovi)] 25 mg PO BID 12/30/19 Nitroglycerin [Nitrostat] 0.4 mg SL Q5M PRN 12/30/19 [place]-3 Fatty Acids/Fish Oil [Fish Oil 1,000 mg Capsule] 1 ea PO DAILY 12/30/19 Raloxifene HCl [Evista] 60 mg PO DAILY 12/30/19 Trajenta 5 mg PO DAILY 12/30/19 Clopidogrel Bisulfate [Plavix] 75 mg PO DAILY #30 tab 01/01/20 Isosorbide Mononitrate [Imdur] 60 mg PO BID #60 tab 01/01/20 The following prescriptions were given: Isosorbide Mononitrate [Imdur] 60 mg PO BID #60 tab Transmission Status: Received by [facility] Clopidogrel Bisulfate [Plavix] 75 mg PO DAILY #30 tab Transmission Status: Pending to [facility] [address] Primary Care Physician: Nadeem Doctor,Out of [NON-STAFF] - Please follow up with your Primary Care Physician in: 1 Week Test Results: Test results from this visit will be discussed in further detail at your follow- up appointment, if applicable. Please Follow Up With: Edvin Mallory MD When: Stress test in one week Proposed Discharge Date: 01/01/20
--- NOTE | 2020-01-01 11:07 | PCM.DC.SUM ---
<Kalyn Pretty FIRMWARE DEVELOPER - Last Filed: 01/01/20 11:44> Discharge Date and Diagnosis - Problem List Patient Problems: Active and Suspected Problems (Last Updated 01/01/20 @ 11:54 by Trupti Pabon) Chest pain (Acute) Date of Admission: 12/30/19 Date of Discharge: 01/01/20 - Primary Discharge Diagnosis Acute Problems: Active Problems (Last Reviewed 12/30/19 @ 15:01 by Irene Quiroz, KEI) 1. NSTEMI, Moderate CAD 2. Chronic kidney disease stage III 3. Type 2 diabetes mellitus 4. Hypertension 5. Hyperlipidemia 6. Hypothyroidism 7. GERD - Secondary Discharge Diagnosis Chronic Problems: Chronic Problems (Last Reviewed 12/30/19 @ 15:01 by Irene Quiroz, KEI) Hypertension (Chronic) High cholesterol (Chronic) Diabetes (Chronic) Hypothyroid (Chronic) Hospital Course and Treatment Imaging Results: Diagnostic Data Chest X-Ray 12/30/19 12:24 IMPRESSION: Nonacute portable x-ray examination of the chest. Electronically Signed: Joselito Salinas MD (Brooks) at 14:05 EST , Service support , Dr. Mallory- Cardiology Operations: None Procedures: Cardiac catheterization Summary of Care Provided: The patient is a 79 year old F admitted 12/30/2019 due to chest pain. 1. Chest pain/NSTEMI-EKG without ST-T changes. Patient had NSTEMI March 2019 where she was evaluated at [facility]. Per records, cath 03/22/2019 demonstrated EF 55%, LAD proximal lesion 40% stenosis, right coronary artery proximal vessel lesion with 30% stenosis, no evidence of obstructive CAD. Repeat heart cath during admission 01/01/2020 demonstrated moderate CAD noted in the proximal LAD 40% stenosis and proximal right coronary artery 60% stenosis. Plan for stress test in 1 week for further assessment of known lesions. Continue aspirin, statin, isosorbide, losartan, metoprolol. Plavix added. Home isosorbide regimen increased to 60 mg twice daily. 2. Chronic kidney disease stage III-stable. 3. Type 2 diabetes mellitus-On Tradjenta, Trulicity, glipizide. 4. Hypertension-stable, continue isosorbide, losartan, metoprolol. 5. Hyperlipidemia-continue statin. 6. Hypothyroidism-continue Synthroid regimen. 7. GERD-continue Prevacid. General: Alert, Oriented x3, Cooperative HEENT: Atraumatic, PERRLA, EOMI, Normocephalic Neck: Supple, No JVD, Negative Carotid Bruits Lungs: Clear to auscultation, Normal air movement Cardiovascular: Regular rate, No murmurs Abdomen: Bowel Sounds Present, Soft, Non Tender Extremities: No clubbing, No cyanosis, No edema, Capillary Refill Less than 3 Seconds Skin: No rashes, No breakdown Musculoskeletal: No Tenderness to Palpation of Joints or Extremities Neurological: Cranial nerves II-XII grossly intact, Neuro grossly intact Psych/Mental Status: Normal Affect, Appropriate Patient seen and examined prior to discharge. Physical assessment as noted above. Patient is stable for discharge with follow up recommendations as noted above. This patient was seen by ELIESER Chisholm under the supervision of Dr. Malloy. Patient Problems: Active and Suspected Problems (Last Updated 01/01/20 @ 11:54 by Trupti Pabon) Chest pain (Acute) - Physical Exam Vitals/I&O's: Vital Signs Temp Pulse Resp BP Pulse Ox 97.4 F L 56 L 16 127/70 H 94 01/01/20 09:45 01/01/20 11:00 01/01/20 11:00 01/01/20 11:00 01/01/20 11:00 Oxygen Delivery Method Room Air Weight: 142 lb Body Mass Index (BMI) 25.1 Intake and Output for Last 24 Hours 12/30/19 12/31/19 01/01/20 23:59 23:59 23:59 Intake Total 3686.67 / 3686.67 1321.67 / 1321.67 Output Total Balance - 3686.67 / 3686.67 1321.67 / 1321.67 Laboratory Results 12/31/19 08:15: COVID-19 (BRYANT) Not Detected 12/31/19 12:40: POC Glucose 101 12/31/19 16:43: POC Glucose 205 H 12/31/19 21:59: POC Glucose 96 01/01/20 03:33: POC Glucose 59 L 01/01/20 04:00: POC Glucose 81 01/01/20 06:42: POC Glucose 156 H 01/01/20 07:20: WBC 8.1, RBC 3.78 L, Hgb 11.2 L, Hct 35.6 L, MCV 94.2, MCH 29.6, MCHC 31.5 L, RDW Std Deviation 46.9 H, RDW Coeff of Jerry 13.6, Plt Count 124 L, MPV 14.4 H 01/01/20 07:20: PT 14.2, INR 1.1 01/01/20 07:20: Sodium 143, Potassium 3.9, Chloride 116 H, Carbon Dioxide 23.0, Anion Gap 4 L, BUN 13, Creatinine 1.22 H, Estim Creat Clear Calc 31.44, Est GFR (MDRD) Af Amer 55 L, Est GFR (MDRD) Non-Af 45 L, BUN/Creatinine Ratio 10.7, Glucose 153 H, Calcium 8.2 L Current Medications Aspirin (Aspirin 81 Mg Tab.Chew) 81 mg PO DAILY@0800 [facility] Last Admin: 01/01/20 06:52 Dose: 81 mg Documented by: Atorvastatin Calcium (Atorvastatin Calcium 80 Mg Tablet) 80 mg PO QHS [facility] Last Admin: 12/31/19 22:07 Dose: 80 mg Documented by: Clopidogrel Bisulfate (Clopidogrel Bisulfate 75 Mg Tablet) 75 mg PO DAILY [facility] Last Admin: 01/01/20 07:01 Dose: 75 mg Documented by: Glipizide (Glipizide 5 Mg Tablet) 5 mg PO BIDCM [facility] Last Admin: 01/01/20 10:25 Dose: 5 mg Documented by: Heparin Sodium (Beef Lung) (Heparin Lock 500 Unit/5 Ml In 10 Ml Syringe) 500 unit IV UD PRN PRN Reason: HEPARIN FLUSH Sodium Chloride () 1,000 mls @ 0 mls/hr IV .Q0M [facility] Sodium Chloride () 1,000 mls @ 75 mls/hr IV .[id number] [facility] Last Admin: 01/01/20 10:00 Dose: 75 mls/hr Documented by: Insulin Human Lispro (Insulin Lispro 100 Unit/Ml Insuln.Pen) 0 unit SC ACHS [facility]; Protocol Last Admin: 01/01/20 11:04 Dose: Not Given Documented by: Isosorbide Mononitrate (Isosorbide Mononitrate 60 Mg Tablet) 60 mg PO BID [facility] Last Admin: 01/01/20 06:52 Dose: 60 mg Documented by: Labetalol HCl (Labetalol (Prefilled) 20 Mg/4 Ml) 5 mg IV X1 PRN PRN Reason: SBP > 160 prior to sheath pull Stop: 01/03/20 09:15 Levothyroxine Sodium (Levothyroxine 50 Mcg Tablet) 50 mcg PO DAILY@0600 [facility] Last Admin: 01/01/20 06:48 Dose: 50 mcg Documented by: Losartan Potassium (Losartan Potassium 25 Mg Tablet) 25 mg PO DAILY [facility] Last Admin: 01/01/20 06:52 Dose: 25 mg Documented by: Metoprolol Tartrate (Metoprolol Tartrate 25 Mg Tablet) 25 mg PO BID [facility] Last Admin: 01/01/20 06:52 Dose: 25 mg Documented by: Nitroglycerin (Nitroglycerin (Inpatient Use) 0.4 Mg Tab.Subl) 0.4 mg SUBLINGUAL Q5M PRN PRN Reason: CARDIAC/CHEST PAIN Ondansetron HCl (Ondansetron 4 Mg/2 Ml Vial) 4 mg IV Q8H PRN PRN PRN Reason: NAUSEA/VOMITING Last Admin: 12/31/19 06:59 Dose: 4 mg Documented by: Pantoprazole Sodium (Pantoprazole Sodium 40 Mg Tablet) 40 mg PO DAILY [facility] Last Admin: 01/01/20 10:25 Dose: 40 mg Documented by: Sodium Chloride (0.9% Saline Lock 10 Ml Syringe) 10 - 40 ml IV UD PRN PRN Reason: SALINE FLUSH Temazepam (Temazepam 15 Mg Capsule) 15 mg PO QHS PRN PRN PRN Reason: INSOMNIA Discharge Diet: Low fat/ Low Cholesterol Discharge Activity: Return to Normal Activity Call your doctor if you observe: Shortness of breath, Dizziness, Fainting spells, Chest pain Home Medications: Medications to take at Discharge Aspirin [Aspirin, Baby] 81 mg PO DAILY@0800 12/30/19 Atorvastatin Calcium [Lipitor] 80 mg PO QHS 12/30/19 Cholecalciferol (Vitamin D3) [Vitamin D3] 2,000 unit PO DAILY 12/30/19 Dulaglutide [Trulicity] 1.5 mg SQ QWEEK 12/30/19 Glipizide 5 mg PO BID 12/30/19 Lansoprazole [Prevacid] 30 mg PO DAILY 12/30/19 Levothyroxine [Synthroid] 50 mcg PO DAILY 12/30/19 Losartan Potassium [Cozaar] 25 mg PO DAILY 12/30/19 Metoprolol Tartrate [Lopressor (beta dora)] 25 mg PO BID 12/30/19 Nitroglycerin [Nitrostat] 0.4 mg SL Q5M PRN 12/30/19 Max-3 Fatty Acids/Fish Oil [Fish Oil 1,000 mg Capsule] 1 ea PO DAILY 12/30/19 Raloxifene HCl [Evista] 60 mg PO DAILY 12/30/19 Trajenta 5 mg PO DAILY 12/30/19 Clopidogrel Bisulfate [Plavix] 75 mg PO DAILY #30 tab 01/01/20 Isosorbide Mononitrate [Imdur] 60 mg PO BID #60 tab 01/01/20 Following Prescriptions Were Given to Patient: Isosorbide Mononitrate [Imdur] 60 mg PO BID #60 tab Transmission Status: Received by [facility] Clopidogrel Bisulfate [Plavix] 75 mg PO DAILY #30 tab Transmission Status: Received by BRE [address] [place] [address] Primary Care Physician: [facility] Doctor,Out of [NON-STAFF] - Please follow up with your Primary Care Physician in: 1 Week Please Follow Up With: Edvin Mallory MD When: Stress test in one week Disposition: Home Minutes spent on discharge:: 35 Patient Condition:: Stable Medical Necessity - Tobacco Use Smoking Status: Never smoker Tobacco Use: Non-smoker Meaningful Use Info Meaningful Use Diagnoses (Choose all that apply): AMI - AMI/Post PCI/Angioplasty Aspirin given w/in 24hrs of arrival?: Yes ASA at discharge?: Yes Statins at discharge?: Yes Prince/ARB at discharge?: Yes Beta Dora at discharge?: Yes Done w/ Acute DC measure.: Yes <Paintsil,Tracy - Last Filed: 01/01/20 16:11> Discharge Date and Diagnosis - Primary Discharge Diagnosis Acute Problems: Active Problems (Last Updated 01/01/20 @ 11:54 by Trupti Pabon) Chest pain (Acute) - Secondary Discharge Diagnosis Chronic Problems: Chronic Problems (Last Updated 01/01/20 @ 11:54 by Trupti Pabon) Atherosclerotic heart disease of [place] coronary artery without angina pectoris (Chronic) Essential (primary) hypertension (Chronic) Hyperlipidemia (Chronic) Diabetes (Chronic) Hypothyroid (Chronic) Hospital Course and Treatment Summary of Care Provided: This patient was seen in conjunction with Kalyn Pretty NP. I have independently interviewed and examined the patient and reviewed pertinent historical, laboratory, and other data. Please refer to her note for patient's presentation, findings, and recommendations. 81-year-old female who presented with sudden onset of chest pain that radiated down both arms and neck. Not associated with diaphoresis lightheadedness or dizziness. She had taken nitro at home that did not improve her symptoms. Patient's initial troponin was negative. ED showed normal sinus rhythm with no acute ST change. Her troponin however trended up to 0.711. Cardiology was consulted. She underwent cardiac cath that did not show any new changes compared to previous. It showed moderate CAD noted in the proximal LAD 40% stenosis and proximal right coronary artery 60% stenosis. Patient was continued on aspirin, statin, isosorbide, losartan, Plavix, metoprolol. Her home isosorbide regimen was increased to 60 mg twice a day. The plan was for a repeat stress test in 1 week to further assess no lesions. On the day of discharge, patient was seen and examined. Denied any new complaints. Physical Exam: Gen: Comfortable, not pale, not jaundiced, alert oriented x3 CVS:HS I +II, regular, no murmurs RESP: CTA GI: BS present and normal, nontender, no palpable organs EXT:No edema - Physical Exam Vitals/I&O's: Vital Signs Temp Pulse Resp BP Pulse Ox 98.3 F 62 16 131/67 H 95 01/01/20 14:30 01/01/20 14:30 01/01/20 14:30 01/01/20 14:30 01/01/20 14:30 Oxygen Delivery Method Room Air Weight: 64.41 kg Body Mass Index (BMI) 25.1 Intake and Output for Last 24 Hours 12/30/19 12/31/19 01/01/20 23:59 23:59 23:59 Intake Total 3686.67 / 3686.67 1470.42 / 1470.42 Output Total Balance - / -1 3686.67 / 3686.67 1470.42 / 1470.42 Laboratory Results 12/31/19 16:43: POC Glucose 205 H 12/31/19 21:59: POC Glucose 96 01/01/20 03:33: POC Glucose 59 L 01/01/20 04:00: POC Glucose 81 01/01/20 06:42: POC Glucose 156 H 01/01/20 07:20: WBC 8.1, RBC 3.78 L, Hgb 11.2 L, Hct 35.6 L, MCV 94.2, MCH 29.6, MCHC 31.5 L, RDW Std Deviation 46.9 H, RDW Coeff of Jerry 13.6, Plt Count 124 L, MPV 14.4 H 01/01/20 07:20: PT 14.2, INR 1.1 01/01/20 07:20: Sodium 143, Potassium 3.9, Chloride 116 H, Carbon Dioxide 23.0, Anion Gap 4 L, BUN 13, Creatinine 1.22 H, Estim Creat Clear Calc 31.44, Est GFR (MDRD) Af Amer 55 L, Est GFR (MDRD) Non-Af 45 L, BUN/Creatinine Ratio 10.7, Glucose 153 H, Calcium 8.2 L Inpatient E&M: [id number] Disch Hosp
--- NOTE | 2020-01-01 12:23 | PHA.DC.MC ---
Pharmacy Service has performed discharge medication reconciliation and counseling for this patient. The patient was counseled on the following discharge medications and changes in medications for homegoing were reviewed. 1. PLAVIX 2. IMDUR - PREVIOUSLY ON, DOSE INCREASED The Reason for Use, instructions for use, and potential side effects were reviewed for all new medications. The patient's questions regarding all of their medications were answered. The patient was able to verbally demonstrate an understanding of their discharge medications. Home Medications Aspirin [Aspirin, Baby] 81 mg PO DAILY@0800 12/30/19 Atorvastatin Calcium [Lipitor] 80 mg PO QHS 12/30/19 Cholecalciferol (Vitamin D3) [Vitamin D3] 2,000 unit PO DAILY 12/30/19 Dulaglutide [Trulicity] 1.5 mg SQ QWEEK 12/30/19 Glipizide 5 mg PO BID 12/30/19 Lansoprazole [Prevacid] 30 mg PO DAILY 12/30/19 Levothyroxine [Synthroid] 50 mcg PO DAILY 12/30/19 Losartan Potassium [Cozaar] 25 mg PO DAILY 12/30/19 Metoprolol Tartrate [Lopressor (beta ovi)] 25 mg PO BID 12/30/19 Nitroglycerin [Nitrostat] 0.4 mg SL Q5M PRN 12/30/19 [place]-3 Fatty Acids/Fish Oil [Fish Oil 1,000 mg Capsule] 1 ea PO DAILY 12/30/19 Raloxifene HCl [Evista] 60 mg PO DAILY 12/30/19 Trajenta 5 mg PO DAILY 12/30/19 Clopidogrel Bisulfate [Plavix] 75 mg PO DAILY #30 tab 01/01/20 Isosorbide Mononitrate [Imdur] 60 mg PO BID #60 tab 01/01/20 The patient's discharge medication list was reviewed for discrepancies and discrepancies were resolved.
--- NOTE | 2020-01-01 12:34 | CASEMGMT ---
KEI BRODERICK assessment: Phone interview with patient for initial transition planning/care coordination assessment. KEI BRODERICK introduced self and role at [facility], pt voices understanding and consents to assessment at this time. Pt is A/Ox4 at this time and answers all questions appropriately at this time. Care providers, pharmacy, and demographics verified at this time. Presentation: Chest heaviness, took 2 ntg Admitting dx: CP, NSTEMI PCP: Tu Specialists: Live, nephmaite; [place], cardio but may switch to Mohamud?? Preferred Pharmacy: [facility] mail order Insurance: MCR A/B, [employer] Prescription Benefit: [employer] Living Will/HPOA: Pt states does not have LW/HPOA but would like AD info to take home and go over with at this time. Reid LU aware, voices understanding. LNOK: Philippe Busby, Living Arrangements: Pt states lives with in [facility] and states no concerns at home at this time. Pt is independent with ADL's. Transportation: Pt states drives self and states no transportation concerns at this time. DME/HHC: Pt states has a cane, grab bars, and shower chair but does not use any. Pt states no need for any further DME at this time. Pt states no hx of HHC or SNF. Pt states no concerns with going home at time of discharge. Pt states is retired. Pt states does not smoke cigarettes or drink ETOH. Pt states no further concerns/needs at this time. CM to follow any further discharge planning/needs. Advised pt to ask for CM if any further questions/concerns/needs arise, voices understanding. Pt Goal: Home Plan: [place] KEI BRODERICK
[2020-01-01] MEDS: Acetaminophen 325 MG Tablet 650 MG PO (13:16)
--- NOTE | 2020-01-01 14:59 | NURSING ---
Pt bedrest up, walked in halls. Right femoral site soft to the touch, pt denies pain and no bleeding noted.
[2020-01-01 16:40] LABS: Bedside Glucose 121 mg/dL (70-110)
== END 2020-01-01 15:22 | disposition home or self-care (01) | DRG 282 ==
LOC: ED 13:34 → PCU 14:34
PROVIDERS: Nurse Practitioner Family; Admitting Provider Internal Medicine; Emergency Provider Emergency Medicine; PCP Family Medicine; Visit Provider Internal Medicine
DX: I21.4 Non-ST elevation (NSTEMI) myocardial infarction (principal); I25.10 Atherosclerotic heart disease of native coronary artery without angina pectoris; N18.30 Chronic kidney disease, stage 3 unspecified; E11.22 Type 2 diabetes mellitus with diabetic chronic kidney disease; E78.5 Hyperlipidemia, unspecified; I12.9 Hypertensive chronic kidney disease with stage 1 through stage 4 chronic kidney disease, or unspecified chronic kidney disease; E03.9 Hypothyroidism, unspecified; K21.9 Gastro-esophageal reflux disease without esophagitis; I25.2 Old myocardial infarction
CPT/HCPCS: 36415; 71045; 80048; 82962; 84484; 85025; 85027; 85610; 87635; 93005; 93454; 99152; 99153; 99285; J7030; Q9967; A4216; C1769; C1894; J2405; U0002

== ENCOUNTER → 2020-05-29 15:37 | Outpatient (CLI) | payer MEDICARE, OTHER, SELFPAY ==
[2019-12-30 16:21] VITALS: BMI 25.1
--- NOTE | 2020-05-29 12:00 | LES_PTH ---
PATIENT: TEREZA BECKHAM LOC: [facility] U#:[id number] AGE/SX: 84/F ROOM: RE05/29/[address]: Dr. Alex Palafox MD : 1940 BED: DIS: SPEC #: [id number] RECD: 05/29/20 15:04 STATUS: NINOSKA RICKEY #: [id number] TYRA: 05/29/20 12:[address]: Alex Palafox DEPT: SURGICAL PATHOLOGY RECD BY: Tana Brandt ENTERED: 05/30/20 08:09 SP TYPE: Lesion OTHR DR: Dr. Nancy Mae, DO Tissues: Skin of eyelid, NOS Procedures: Surgery Specimen Level IV HEADER OPERATION: Excision of lesion RLL, shave biopsy PRE-OP DIAGNOSIS: Right lower eyelid lesion TISSUE SUBMITTED: Right lower eyelid lesion MICROSCOPIC DIAGNOSIS Right lower eyelid lesion, biopsy: Focal minimal chronic dermal inflammation. No evidence of malignancy. AM:matti 06/03/2020 MICROSCOPIC DESCRIPTION Slides are reviewed. GROSS DESCRIPTION Received is one container labeled with the patient's name and not further designated. The specimen consists of two irregular fragments of light jolly soft tissue that in aggregate measure 0.2 x 0.1 x <0.1 cm. The specimen is totally submitted in one cassette. / AM:matti 05/30/20 TC:3 CPT: 93234
== END ==
PROVIDERS: PCP Family Medicine; Referring Provider Ophthalmology; Visit Provider Ophthalmology
DX: L98.9 Disorder of the skin and subcutaneous tissue, unspecified (principal)
CPT/HCPCS: 88305